=== PATIENT | female | born 1985 | race American Indian/Alaskan Native ===

== ENCOUNTER 2017-07-31 10:19 | Emergency (ER) | payer MEDICAID ==
[2017-07-31 10:39] VITALS: BP 128/75
[2017-07-31 11:04] LABS: Bacteria,Urine 1+ /HPF (Negative); Bilirubin,Urine NEG (Negative); Blood,Urine SM (Negative); Ketones,Urine NEG (Negative); Leukocyte Esterase,Urine MOD (Negative); Nitrite,Urine NEG (Negative); Protein,Urine <15 mg/dL mg/dL (Negative); Urobilinogen,Urine < 2.0 mg/dL (<2.0)
== END 2017-07-31 10:48 | disposition left against medical advice (07) ==
LOC: ED 10:19
DX: R10.9 Unspecified abdominal pain (principal); R35.0 Frequency of micturition; Z53.21 Procedure and treatment not carried out due to patient leaving prior to being seen by health care provider
CPT/HCPCS: 81001; 81025

== ENCOUNTER 2017-08-05 17:05 | Emergency (ER) | payer MEDICAID ==
[2017-08-05 19:57] LABS: Bacteria,Urine 1+ /HPF (Negative); Bilirubin,Urine NEG (Negative); Blood,Urine SM (Negative); Ketones,Urine NEG (Negative); Leukocyte Esterase,Urine LG (Negative); Mucus,Urine FEW /HPF; Nitrite,Urine NEG (Negative); Urobilinogen,Urine < 2.0 mg/dL (<2.0)
[2017-08-05 19:59] LABS: WBC,Urine > 182.0 /HPF (0.0-6.0)
[2017-08-05 20:16] LABS: Basophils % (Auto) 0.7 % (0.0-1.8); Hemoglobin 12.7 gm/dl (10.1-14.3); Mean Corpuscular HGB Conc 34 % (30-34); Mean Corpuscular Hemoglobin 31 pg (28-32); Mean Corpuscular Volume 93 fl (79-97); Platelet Count 298 K/mm3 (140-440); Red Blood Count 4.08 M/mm3 (3.65-5.03); Red Cell Distribution Width 13.5 % (13.2-15.2); White Blood Count 8.7 K/mm3 (4.5-11.0)
[2017-08-05 20:17] LABS: Alanine Aminotransferase 18 units/L (7-56); Alkaline Phosphatase 90 units/L (35-129); BUN/Creatinine Ratio 8; Blood Urea Nitrogen 6 mg/dL (7-17); Calcium 9.4 mg/dL (8.4-10.2); Carbon Dioxide 25 mmol/L (22-30); Glucose 112 mg/dL (65-100); Lipase 14 units/L (13-60); Total Protein 8.2 g/dL (6.3-8.2)
[2017-08-05 20:18] LABS: Anion Gap 20 mmol/L; Chloride 98.5 mmol/L (98-107); Potassium 4.3 mmol/L (3.6-5.0); Sodium 139 mmol/L (137-145)
[2017-08-06] MEDS ORDERED: TYLENOL PO ONE
[2017-08-06] MEDS ORDERED: TYLENOL ONE (00:04)
--- NOTE | 2017-08-06 08:25 | Emergency Department Report ---
ED Abdominal Pain HPI - General Chief Complaint: Abdominal Pain Stated Complaint: ABD PAIN Time Seen by Provider: 08/06/17 08:23 Source: patient Mode of arrival: Ambulatory Limitations: No Limitations - History of Present Illness Initial Comments: Patient describes a suprapubic discomfort and urinary frequency for the last 1- 2 days. He doesn't report any vaginal discharge. She doesn't report any back pain, fever, chills. She states he's had urinary tract infections before but she has not been on any recent antibiotics. MD Complaint: abdominal pain -: Gradual, days(s) Location: suprapubic Radiation: none Migration to: no migration Severity: moderate Quality: dull Consistency: intermittent Improves With: nothing Worsens With: nothing Associated Symptoms: other (urinary frequency) - Related Data Previous Rx's Medication Instructions Recorded Last Taken Type HYDROcodone/APAP 5-325 [[place] 1 each PO Q6HR PRN #10 tablet 08/06/17 Unknown Rx 5/325] Nitrofurantoin Monohyd/M-Cryst 100 mg PO BID #14 capsule 08/06/17 Unknown Rx [Macrobid 100 mg Capsule] Allergies Allergy/AdvReac Type Severity Reaction Status Date / Time No Known Allergies Allergy Verified 08/06/17 00:02 ED Review of Systems ROS: Stated complaint: ABD PAIN Other details as noted in HPI Constitutional: denies: chills, fever Eyes: denies: eye pain, eye discharge, vision change ENT: denies: ear pain, throat pain Respiratory: denies: cough, shortness of breath, wheezing Cardiovascular: denies: chest pain, palpitations Endocrine: no symptoms reported Gastrointestinal: as per HPI, abdominal pain. denies: nausea, vomiting, diarrhea Genitourinary: denies: urgency, dysuria, discharge Musculoskeletal: denies: back pain, joint swelling, arthralgia Skin: denies: rash, lesions Neurological: denies: headache, weakness, paresthesias Psychiatric: denies: anxiety, depression Hematological/Lymphatic: denies: easy bleeding, easy bruising ED Past Medical Hx - Past Medical History Previous Medical History?: Yes Additional medical history: thyroid problem - Surgical History Past Surgical History?: Yes Additional Surgical History: x 4, Thyroid removed - Social History Smoking Status: Never Smoker - Medications Home Medications: Home Medications Medication Instructions Recorded Confirmed Last Taken Type HYDROcodone/APAP 5-325 [[place] 1 each PO Q6HR PRN #10 tablet 08/06/17 Unknown Rx 5/325] Nitrofurantoin Monohyd/M-Cryst 100 mg PO BID #14 capsule 08/06/17 Unknown Rx [Macrobid 100 mg Capsule] ED Physical Exam - General Limitations: No Limitations General appearance: alert, in no apparent distress, obese - Head Head exam: Present: atraumatic, normocephalic - Eye Eye exam: Present: normal appearance - ENT ENT exam: Present: mucous membranes moist - Neck Neck exam: Present: normal inspection - Respiratory Respiratory exam: Present: normal lung sounds bilaterally. Absent: respiratory distress - Cardiovascular Cardiovascular Exam: Present: regular rate, normal rhythm. Absent: systolic murmur, diastolic murmur, rubs, gallop - GI/Abdominal GI/Abdominal exam: Present: soft, normal bowel sounds. Absent: distended, tenderness, guarding, rebound, rigid, organomegaly, mass, bruit, pulsatile mass , hernia - Extremities Exam Extremities exam: Present: normal inspection - Back Exam Back exam: Present: normal inspection - Neurological Exam Neurological exam: Present: alert, oriented X3, CN II-XII intact. Absent: motor sensory deficit - Psychiatric Psychiatric exam: Present: normal affect, normal mood - Skin Skin exam: Present: warm, dry, intact, normal color. Absent: rash ED Course Vital Signs 08/05/17 08/06/17 08/06/17 19:06 03:58 05:27 Temperature 99.1 F 99.1 F Pulse Rate 94 H 87 Respiratory 18 18 Rate Blood Pressure 124/87 107/85 Blood Pressure [Left] O2 Sat by Pulse 100 97 100 Oximetry 08/06/17 08/06/17 08/06/17 05:28 05:29 05:31 Temperature 99.2 F Pulse Rate 94 H Respiratory 18 Rate Blood Pressure 131/63 121/80 Blood Pressure [Left] O2 Sat by Pulse 100 100 100 Oximetry 08/06/17 08/06/17 05:32 07:25 Temperature 99.9 F H Pulse Rate 99 H Respiratory 18 18 Rate Blood Pressure Blood Pressure 110/62 [Left] O2 Sat by Pulse 100 99 Oximetry - Reevaluation(s) Reevaluation #1: Patient is given IM Rocephin. She will be continued on Macrobid. She is instructed to follow-up on her urine culture. 08/06/17 11:16 08/06/17 11:17 ED Medical Decision Making - Lab Data Result diagrams: 08/05/17 19:25 08/05/17 19:25 Laboratory Results - last 24 hr 08/05/17 08/05/17 08/05/17 19:25 19:25 Unknown WBC 8.7 RBC 4.08 Hgb 12.7 Hct 38.0 MCV 93 MCH 31 MCHC 34 RDW 13.5 Plt Count 298 Lymph % (Auto) 13.8 [place] % (Auto) 9.2 H Eos % (Auto) 1.0 Baso % (Auto) 0.7 Lymph # 1.2 [place] # 0.8 Eos # 0.1 Baso # 0.1 Seg Neutrophils % 75.3 H Seg Neutrophils # 6.6 Sodium 139 Potassium 4.3 Chloride 98.5 Carbon Dioxide 25 Anion Gap 20 BUN 6 L Creatinine 0.8 Estimated GFR > 60 BUN/Creatinine Ratio 8 Glucose 112 H Calcium 9.4 Total Bilirubin 1.00 AST 43 H ALT 18 Alkaline Phosphatase 90 Total Protein 8.2 Albumin 4.0 Albumin/Globulin Ratio 1.0 Lipase 14 Urine Color Yellow Urine Turbidity Slightly cloudy Urine pH 5.0 Ur Specific [place] 1.012 Urine Protein 100 mg/dl Urine Glucose (UA) Neg Urine Ketones Neg Urine Blood Sm Urine Nitrite Neg Urine Bilirubin Neg Urine Urobilinogen < 2.0 Ur Leukocyte Esterase Lg Urine WBC (Auto) > 182.0 H Urine RBC (Auto) 7.0 U Epithel Cells (Auto) 4.0 Urine Bacteria (Auto) 1+ Urine WBC Clumps 3+ Urine Mucus Few Laboratory Results - last 24 hr 08/05/17 08/05/17 08/05/17 19:25 19:25 Unknown WBC 8.7 RBC 4.08 Hgb 12.7 Hct 38.0 MCV 93 MCH 31 MCHC 34 RDW 13.5 Plt Count 298 Lymph % (Auto) 13.8 [place] % (Auto) 9.2 H Eos % (Auto) 1.0 Baso % (Auto) 0.7 Lymph # 1.2 [place] # 0.8 Eos # 0.1 Baso # 0.1 Seg Neutrophils % 75.3 H Seg Neutrophils # 6.6 Sodium 139 Potassium 4.3 Chloride 98.5 Carbon Dioxide 25 Anion Gap 20 BUN 6 L Creatinine 0.8 Estimated GFR > 60 BUN/Creatinine Ratio 8 Glucose 112 H Calcium 9.4 Total Bilirubin 1.00 AST 43 H ALT 18 Alkaline Phosphatase 90 Total Protein 8.2 Albumin 4.0 Albumin/Globulin Ratio 1.0 Lipase 14 Urine Color Yellow Urine Turbidity Slightly cloudy Urine pH 5.0 Ur Specific [place] 1.012 Urine Protein 100 mg/dl Urine Glucose (UA) Neg Urine Ketones Neg Urine Blood Sm Urine Nitrite Neg Urine Bilirubin Neg Urine Urobilinogen < 2.0 Ur Leukocyte Esterase Lg Urine WBC (Auto) > 182.0 H Urine RBC (Auto) 7.0 U Epithel Cells (Auto) 4.0 Urine Bacteria (Auto) 1+ Urine WBC Clumps 3+ Urine Mucus Few Critical care attestation.: If time is entered above; I have spent that time in minutes in the direct care of this critically ill patient, excluding procedure time. ED Disposition Clinical Impression: Acute cystitis Qualifiers: Hematuria presence: without hematuria Qualified Code(s): N30.00 - Acute cystitis without hematuria Disposition: TO HOME OR SELFCARE Is pt being admited?: No Does the pt Need Aspirin: No Condition: Stable Instructions: Abdominal Pain (ED), Urinary Tract Infection in Women (ED) Additional Instructions: It is important to follow-up on your urine culture report. Also return if you have fever or chills vomiting or any significant abdominal discomfort as necessary. See referral. Prescriptions: HYDROcodone/APAP 5-325 [[place] 5/325] 1 each PO Q6HR PRN #10 tablet PRN Reason: Pain Nitrofurantoin Monohyd/M-Cryst [Macrobid 100 mg Capsule] 100 mg PO BID #14 capsule Referrals: EYAL MAURICIO MD [Primary Care Provider] - 3-5 Days [facility] [Provider Group] - 2-3 Days Time of Disposition: 11:18
[2017-08-06] MEDS ORDERED: NORCO 5/325 PO ONE (11:04)
[2017-08-06] MEDS ORDERED: ROCEPHIN IM ONE (11:14)
[2017-08-06] MEDS ORDERED: XYLOCAINE 1% MPF 5 mL INFILTRATI ONE (11:14)
[2017-08-06 11:54] VITALS: BP 110/72
== END 2017-08-06 11:52 | disposition home or self-care (01) ==
LOC: ED 17:05
DX: N30.00 Acute cystitis without hematuria (principal)
CPT/HCPCS: 36415; 80053; 81001; 81025; 83690; 85025; 87076; 87086; 87186; 96372; 99283; J0696